=== PATIENT | female | born 1945 | race Caucasian/White ===

== ENCOUNTER 2021-11-10 10:30 | Outpatient (CLI) | payer MEDICARE | END 2021-11-10 10:31 | disposition home or self-care (01) | LOC: CSHMAMMO 10:30 | PROVIDERS: ATTEND Family Medicine | DX: Z13.820 Encounter for screening for osteoporosis (principal); N95.1 Menopausal and female climacteric states; M85.88 Other specified disorders of bone density and structure, other site; M81.0 Age-related osteoporosis without current pathological fracture | CPT/HCPCS: 77080 ==

== ENCOUNTER 2021-12-07 10:20 | Outpatient (CLI) | payer MEDICARE | END 2021-12-07 10:21 | disposition home or self-care (01) | LOC: CSHRAD 10:20 | PROVIDERS: ATTEND Family Medicine | DX: M54.50 Low back pain, unspecified (principal); M54.2 Cervicalgia; M41.84 Other forms of scoliosis, thoracic region; M48.56XA Collapsed vertebra, not elsewhere classified, lumbar region, initial encounter for fracture; M47.816 Spondylosis without myelopathy or radiculopathy, lumbar region; M47.812 Spondylosis without myelopathy or radiculopathy, cervical region | CPT/HCPCS: 72050; 72072; 72100 ==

== ENCOUNTER 2023-12-14 14:07 | Outpatient (CLI) | payer MEDICARE | END 2023-12-14 14:08 | disposition home or self-care (01) | LOC: CSHMAMMO 14:07 | PROVIDERS: ATTEND Family Medicine | DX: M81.8 Other osteoporosis without current pathological fracture (principal); M85.88 Other specified disorders of bone density and structure, other site | CPT/HCPCS: 77080 ==